=== PATIENT | male | born 1960 ===

== ENCOUNTER 2024-07-18 09:31 | Observation (INO) ==
[2024-07-18 10:15] LABS: INR 1.07 (0.85-1.14)
[2024-07-18 10:19] LABS: ABS Basophils 0.1 10^3/uL (0.0-0.1); ABS Eosinophils 0.1 10^3/uL (0.0-0.5); ABS Lymphocytes 2.9 10^3/uL (1.0-4.8); ABS Monocytes 0.6 10^3/uL (0.0-1.1); ABS Neutrophils 7.8 10^3/uL (1.5-7.6); ABS Nucleated RBC 0.02 10^3/ul; Eosinophil % 0.6 %; Hematocrit 42.3 % (38-53); Hemoglobin 14.5 g/dL (13.2-16.3); Lymphocyte % 25.1 %; Mean Corpuscular Hgb Conc 34.2 g/dL (31-36); Mean Corpuscular Volume 87.8 fL (80-97); Mean Platelet Volume 8.5 fL (7.5-11.2); Nucleated Red Blood Cells % 0.2 %/100WBC (0.0-0.8); Platelet Count 387 10^3/uL (150-450); Red Blood Count 4.82 10^6/uL (4.06-5.63); Red Cell Distribution Width 13.7 % (12-17); White Blood Count 11.4 10^3/uL (3.6-10.2)
[2024-07-18 10:33] LABS: Albumin/Globulin Ratio 1.4 (1-3); Creatinine, Serum 1.04 mg/dL (0.67-1.17); Globulin 2.9 g/dL (2-4); Potassium 3.6 mmol/L (3.5-5.0); Total Bilirubin 0.4 mg/dL (0.2-1.0); Total Protein 6.9 g/dL (6.4-8.9); eGFR CKD-EPI 81.2 (>60)
[2024-07-18 12:03] LABS: High Sensitivity Troponin 1 Hr 9 pg/mL (<20)
[2024-07-18] MEDS ORDERED: Dextrose 50% Syringe 50 ml 25 GM/50 ML SYRINGE IV PUSH PRN (13:30)
[2024-07-18] MEDS ORDERED: oxyCODONE/Acetamin 5/325 mg TAB PO PRN (13:38)
[2024-07-18 14:05] LABS: TSH Ultra Thyroid Stim Horm 1.41 mcIU/mL (0.34-5.60)
[2024-07-18] MEDS: DULoxetine DR 60 mg CAP PO SCH (21:13)
[2024-07-18] MEDS: Enoxaparin 40 MG/0.4 ML SYR SUBCUT SCH (21:16)
[2024-07-18] MEDS: Calcium Polycarbophil 625mg TB PO SCH ×2 (21:21→21:29)
[2024-07-19 04:46] LABS: ABS Basophils 0.1 10^3/uL (0.0-0.1); ABS Eosinophils 0.1 10^3/uL (0.0-0.5); ABS Lymphocytes 3.6 10^3/uL (1.0-4.8); ABS Monocytes 0.5 10^3/uL (0.0-1.1); ABS Neutrophils 3.6 10^3/uL (1.5-7.6); Eosinophil % 1.6 %; Hematocrit 40.7 % (38-53); Hemoglobin 14.3 g/dL (13.2-16.3); Lymphocyte % 45.7 %; Mean Corpuscular Hemoglobin 30.9 pg (27-33); Mean Corpuscular Hgb Conc 35.1 g/dL (31-36); Mean Corpuscular Volume 87.9 fL (80-97); Mean Platelet Volume 8.4 fL (7.5-11.2); Platelet Count 374 10^3/uL (150-450); Red Blood Count 4.63 10^6/uL (4.06-5.63); Red Cell Distribution Width 13.7 % (12-17); White Blood Count 7.9 10^3/uL (3.6-10.2)
[2024-07-19 05:37] LABS: Calcium 8.8 mg/dL (8.6-10.3); Creatinine, Serum 1.08 mg/dL (0.67-1.17); Magnesium 2.3 mg/dL (1.9-2.7); Potassium 3.6 mmol/L (3.5-5.0); eGFR CKD-EPI 77.6 (>60)
[2024-07-19 06:15] LABS: High Sensitivity Troponin 1 Hr 8 pg/mL (<20)
[2024-07-19] MEDS: Potassium Chlor 20 meq TAB.ER PO ONE (06:37)
[2024-07-19] MEDS ORDERED: Sulfur Hexaflouride MICROSPHR 25 MG VIAL IV PRN (08:01)
[2024-07-19] MEDS: Lactated Ringers 1000 ml BAG 1,000 ML IV ONE ×2 (08:35→16:51)
[2024-07-19] MEDS ORDERED: Regadenoson 0.4 MG/5 ML SYRINGE ONE (11:37)
[2024-07-19] MEDS ORDERED: Aminophylline 25 MG/ML VIAL ONE (11:37)
[2024-07-19] MEDS: oxyCODONE/Acetamin 5/325 mg TAB PO PRN (21:06)
[2024-07-20 05:55] LABS: ABS Basophils 0.1 10^3/uL (0.0-0.1); ABS Eosinophils 0.2 10^3/uL (0.0-0.5); ABS Lymphocytes 4.4 10^3/uL (1.0-4.8); ABS Monocytes 0.6 10^3/uL (0.0-1.1); ABS Neutrophils 6.2 10^3/uL (1.5-7.6); ABS Nucleated RBC 0.01 10^3/ul; Eosinophil % 1.6 %; Hematocrit 41.7 % (38-53); Hemoglobin 13.9 g/dL (13.2-16.3); Lymphocyte % 37.9 %; Mean Corpuscular Hemoglobin 29.4 pg (27-33); Mean Corpuscular Hgb Conc 33.3 g/dL (31-36); Mean Corpuscular Volume 88.2 fL (80-97); Mean Platelet Volume 8.6 fL (7.5-11.2); Nucleated Red Blood Cells % 0.1 %/100WBC (0.0-0.8); Platelet Count 358 10^3/uL (150-450); Red Blood Count 4.73 10^6/uL (4.06-5.63); Red Cell Distribution Width 13.7 % (12-17); White Blood Count 11.5 10^3/uL (3.6-10.2)
[2024-07-20 06:26] LABS: Calcium 8.6 mg/dL (8.6-10.3); Creatinine, Serum 1.13 mg/dL (0.67-1.17); Magnesium 2.1 mg/dL (1.9-2.7); Potassium 4.9 mmol/L (3.5-5.0); eGFR CKD-EPI 73.5 (>60)
[2024-07-20] MEDS ORDERED: Regadenoson 0.4 MG/5 ML SYRINGE ONE (13:36)
[2024-07-21 06:40] LABS: Calcium 8.7 mg/dL (8.6-10.3); Creatinine, Serum 0.99 mg/dL (0.67-1.17); Magnesium 2.1 mg/dL (1.9-2.7); Potassium 4.8 mmol/L (3.5-5.0); eGFR CKD-EPI 86.1 (>60)
[2024-07-21] MEDS: Senna TAB 8.6 mg TAB PO ONE (09:49)
[2024-07-21] MEDS: Polyethylene Glycol 3350 17 GM PACKET PO SCH (20:54)
[2024-07-22 07:16] LABS: Calcium 8.3 mg/dL (8.6-10.3); Creatinine, Serum 0.9 mg/dL (0.67-1.17); Potassium 4.1 mmol/L (3.5-5.0); eGFR CKD-EPI 96.6 (>60)
[2024-07-22 14:06] VITALS: BP 140/88
[2024-07-26 10:11] LABS: Renin <0.6 ng/mL/h
== END 2024-07-22 16:42 ==
LOC: EDHOLD 09:31 → ED 09:31 → SUATTDRO 11:28 → MEDTELE 14:41
PROVIDERS: ADMIT Student in an Organized Health Care Education/Training Program; ATTEND Hospitalist